=== PATIENT | male | born 1970 | race Caucasian/White ===

== ENCOUNTER 2023-12-06 06:04 | Day surgery (SDC) | payer BC ==
[2023-12-06] VITALS (7 sets, daily range): BP systolic 117–132; BP diastolic 76–92; PULSE 74–89; RESP 14–17; TEMP 97.6; O2SAT 96–100
[~2023-12-06] VITALS: Ht 165.1 cm; Wt 80.0 kg
[2023-12-06] MEDS: DOCUMENT DATE & TIME OF BETA-BLOCKER PO ONE (05:30)
[2023-12-06] MEDS: tranexamic acid inj. 1,000 MG in normal saline IV soln 100ML IV ONE (05:30)
[2023-12-06] MEDS: oxymetazoline 15 ML nasal spray NS ONE (05:30)
[2023-12-06] MEDS: famotidine 20mg tablet PO ONE (05:30)
[~2023-12-06 06:04] MED LIST: LOSA100T58 PO; METO-384 PO; ROSU10TA28 PO; TADA5TAB13 PO; TEST200V33 SQ; ringers solution, lacted 1,000 ML IV SCH
[2023-12-06] MEDS ORDERED: cocaine 4% topical solution 4ml bottle ONE (06:27)
[2023-12-06] MEDS ORDERED: LIDOCAINE 1%/EPI 1:100,000 inj. 10 ML multi-dose vial ONE (06:28)
[2023-12-06] MEDS ORDERED: epiNEPHrine 1 mg/ml 30ml MDV ONE (06:28)
[2023-12-06] MEDS ORDERED: tranexamic acid 100mg/ml inj. ONE (06:29)
[2023-12-06] MEDS ORDERED: mupirocin 2% ointment 22GM ONE (06:29)
[2023-12-06] MEDS ORDERED: oxymetazoline 15 ML nasal spray NS ONE ×2 (06:30→07:14)
[2023-12-06] MEDS ORDERED: dexmedetomidine 200mcg/2ml inj. IV ONE (07:14)
[2023-12-06] MEDS ORDERED: ceFAZolin 1000mg inj IV ONE (07:50)
[2023-12-06] MEDS ORDERED: sevoflurane 250ml liquid IH ONE (07:58)
[2023-12-06] MEDS: cocaine 4% topical solution 4ml bottle TP ONE (08:00)
[2023-12-06] MEDS: LIDOcaine 1% w/EPI 1:100,000 30ml vial (MDV) IJ ONE (08:00)
[2023-12-06] MEDS ORDERED: midazolam 1 mg/ML 2ml injection ONE (08:03)
[2023-12-06] MEDS ORDERED: fentaNYL/PF 50MCG/1 ML 2ML syringe ONE (08:03)
[2023-12-06] MEDS ORDERED: cefazolin 2gm/D5W 100mL 100 ML IV ONE (08:03)
[2023-12-06] MEDS ORDERED: propofol inj 20 ML IV ONE (08:06)
[2023-12-06] MEDS ORDERED: LIDOcaine 1% w/EPI 1:100,000 inj. MDV 50 ML VIAL ONE (08:18)
[2023-12-06] MEDS ORDERED: ePHEDrine 50MG/ML INJ. ONE (08:34)
[2023-12-06] MEDS ORDERED: dexamethasone sod phosphate 4mg/ml inj. ONE (08:34)
[2023-12-06] MEDS ORDERED: meperidine/PF 25mg/ml syringe IV PRN ×2 (08:50)
[2023-12-06] MEDS ORDERED: proCHLORperazine 10 MG/2 ml inj IV PRN (08:50)
[2023-12-06] MEDS ORDERED: labetalol 20mg/4ml (5mg/ml) syringe IV PRN (08:50)
[2023-12-06] MEDS ORDERED: morphine 4 MG/ML inj SYRINge IV PRN (08:50)
[2023-12-06] MEDS ORDERED: enalaprilat dihydrate 2.5mg/2ml vial IV PRN (08:50)
[2023-12-06] MEDS ORDERED: morphine 2 MG/ML inj. syringe IV PRN (08:50)
[2023-12-06] MEDS ORDERED: ondansetron/PF 4mg/2ml inj IV PRN (08:50)
[2023-12-06] MEDS ORDERED: ringers solution, lacted 1,000 ML IV SCH (08:50)
[2023-12-06] MEDS ORDERED: ondansetron/PF 4mg/2ml inj ONE (09:13)
[2023-12-06] MEDS ORDERED: salt irrigation nasal spray 45 ML SPRAY NS PRN (09:25)
[2023-12-06] MEDS: meperidine/PF 25mg/ml syringe IV PRN (09:58)
== END 2023-12-06 10:45 | disposition home or self-care (01) ==
LOC: PAS 06:04
PROVIDERS: ATTEND Otolaryngology
DX: J32.8 Other chronic sinusitis (principal); I10 Essential (primary) hypertension; E78.5 Hyperlipidemia, unspecified; N40.0 Benign prostatic hyperplasia without lower urinary tract symptoms; Z88.0 Allergy status to penicillin; Z79.899 Other long term (current) drug therapy; Z98.890 Other specified postprocedural states; Z87.442 Personal history of urinary calculi
CPT/HCPCS: 31254; 31256; 61782; 82948; 93005; A6402; J0171; J0690; J1100; J2175; J2250; J2405; J2704; J3010; J3490; J7030; J7050; J7120; Z7506; Z7508; Z7512; A4618; A6449; A7000